=== PATIENT | female | born 1975 | race Caucasian/White ===

== ENCOUNTER 2016-12-05 21:08 | Emergency (ER) | payer OTHER ==
[2016-12-05 21:09] VITALS: BMI 36.7
--- NOTE | 2016-12-05 22:03 | C.PDOC ---
History Of Present Illness 41 year old female presents to the ED with complaints of lower abdominal pain for the past week. Patient states her LMP was on 10/30/16 and denies dysuria, hematuria, vaginal bleeding, vomiting, or any other complaints at this time. Chief Complaint (Nursing): Abdominal Pain History Per: Patient History/Exam Limitations: no limitations Onset/Duration Of Symptoms: Days Current Symptoms Are (Timing): Still Present Severity: Mild Radiation Of Pain To:: None Quality Of Discomfort: "Pain" Associated Symptoms: denies: Fever, Chills, Nausea, Vomiting, Urinary Symptoms Abnormal Vaginal Bleeding: No Past Medical History Reviewed: Historical Data, Nursing Documentation, Vital Signs Vital Signs: Last Vital Signs Temp 98.1 F 12/05/16 21:15 Pulse 83 12/05/16 21:15 Resp 16 12/05/16 21:15 BP 118/85 12/05/16 21:15 Pulse Ox 100 12/05/16 22:05 - Medical History PMH: Anemia, Anxiety, Asthma Surgical History: Cholecystectomy - [facility] Procedures COLONOSCOPY (06/26/13) INJECT/INFUSE ELECTROLYT (08/23/13) INJECT/INFUSE NEC (01/29/14) VENOUS PUNCTURE NEC (01/29/14) Family History: States: Unknown Family Hx - Social History Hx Tobacco Use: Yes Hx Alcohol Use: No Hx Substance Use: No - Immunization History Hx Tetanus Toxoid Vaccination: No Hx Influenza Vaccination: No Hx Pneumococcal Vaccination: No Review Of Systems Except As Marked, All Systems Reviewed And Found Negative. Constitutional: Negative for: Fever, Chills Gastrointestinal: Positive for: Abdominal Pain. Negative for: Nausea, Vomiting , Diarrhea Genitourinary: Negative for: Dysuria, Hematuria, Vaginal Bleeding Musculoskeletal: Negative for: Back Pain Physical Exam - Physical Exam Appears: Non-toxic, No Acute Distress Skin: Normal Color, Warm, Dry Head: Atraumatic, Normacephalic Eye(s): bilateral: Normal Inspection Oral Mucosa: Moist Chest: Symmetrical Cardiovascular: Rhythm Regular, No Murmur Respiratory: Normal Breath Sounds, No Accessory Muscle Use, No Rales, No Rhonchi , No Wheezing Gastrointestinal/Abdominal: Soft, Tenderness, No Distention, No Guarding, No Rebound (+Mild hypogastric tenderness) Extremity: Normal ROM, No Deformity Neurological/Psych: Oriented x3, Normal Speech, Normal Cognition ED Course And Treatment - Laboratory Results Result Diagrams: 12/05/16 22:26 12/05/16 22:26 O2 Sat by Pulse Oximetry: 100 (Room air) Pulse Ox Interpretation: Normal Progress Note: Pelvis US, Blood work, and Urinalysis ordered and reviewed. Disposition Counseled Patient/Family Regarding: Diagnosis - Disposition Referrals: [facility] at [facility] [Outside] Disposition: HOME/ ROUTINE Disposition Time: 23:18 Condition: STABLE Prescriptions: traMADol/Acetaminophen [Ultracet 325 MG-37.5 MG] 1 tab PO Q6 #14 tab Instructions: Uterine Fibroids (ED), Ovarian Cyst (ED) - POA Present On Arrival: None - Clinical Impression Clinical Impression: Uterine leiomyoma, Cyst of ovary - Scribe Statement The provider has reviewed the documentation as recorded by the Scribe shonna gaspar. Provider Attestation: All medical record entries made by the Scribe were at my direction and personally dictated by me. I have reviewed the chart and agree that the record accurately reflects my personal performance of the history, physical exam, medical decision making, and the department course for this patient. I have also personally directed, reviewed, and agree with the discharge instructions and disposition.
[2016-12-05 22:31] LABS: BASO # 0.1 K/uL (0.0-0.2); BASO % 0.9 % (0.0-2.0); EOS # 0.2 K/uL (0.0-0.7); HEMATOCRIT 37.6 % (34.0-47.0); LYMPH # 2.4 K/uL (1.0-4.3); MEAN CELL VOLUME 93.8 fL (81.0-99.0); MEAN CORPUSCULAR HEMOGLOBIN 31.1 pg (27.0-31.0); MEAN CORPUSCULAR HGB CONC 33.2 g/dL (33.0-37.0); MEAN PLATELET VOLUME 8.7 fL (7.2-11.7); MONO # 0.5 K/uL (0.0-0.8); MONO % 5.2 % (0.0-10.0); RED CELL DISTRIBUTION WIDTH 13.3 % (11.5-14.5); WHITE BLOOD COUNT 8.9 K/uL (4.8-10.8)
[2016-12-05 22:36] LABS: CHLORIDE 99 mmol/L (98-107); POTASSIUM 3.5 mmol/L (3.6-5.2); SODIUM 142 mmol/L (132-148)
[2016-12-05 22:38] LABS: AST/SGOT 22 U/L (14-36); BILIRUBIN,TOTAL 0.3 mg/dL (0.2-1.3); CARBON DIOXIDE 28 mmol/L (22-30); GFR AFRICAN-AMERICAN > 60; RBC URINE 3 /hpf (0-3); URINE BILIRUBIN NEGATIVE (NEGATIVE); URINE BLOOD NEGATIVE (NEGATIVE); URINE COLOR Yellow (YELLOW); URINE GLUCOSE (UA) NORMAL (Normal); URINE KETONE NEGATIVE (NEGATIVE); URINE LEUKOCYTE ESTERASE NEG Leu/uL (Negative); URINE PROTEIN NEGATIVE (NEGATIVE); URINE UROBILINOGEN NORMAL mg/dL (0.2-1.0)
[2016-12-05 22:39] LABS: ALB/GLOB RATIO 1.2 (1.0-2.1); ALKALINE PHOSPHATASE 70 U/L (38-126); ALT/SGPT 17 U/L (9-52); BLOOD UREA NITROGEN 13 mg/dL (7-17); CALCIUM 8.3 mg/dl (8.6-10.4); GLUCOSE,RANDOM 97 mg/dL (65-105)
--- NOTE | 2016-12-05 23:13 | US ---
EXAM: US Pelvis, Transvaginal. CLINICAL HISTORY: 41 years old, female; Pain; Pelvic pain; Additional info: Hypogastric pain/ tenderness TECHNIQUE: Real-time transvaginal pelvic ultrasound (complete) with image documentation. Transvaginal imaging was used for better evaluation of the endometrium and adnexa. EXAM DATE/TIME: 12/05/2016 9:58 PM COMPARISON: No relevant prior studies available. FINDINGS: There are 2 uterine fibroids identified. There is one located posteriorly measuring 1.4 x 1.3 x 1.6 cm. The other is located within the mid uterus and measures 1.4 x 0.9 x 1.2 cms. The endometrium measures 6 mm. There is a 2.3 x 1.7 cm right ovarian cyst. The left ovary is normal. Color flow and doppler vascular waveforms were demonstrated to both ovaries. There is no significant free fluid. IMPRESSION: Fibroid uterus. Small right ovarian cyst.
[2016-12-05 23:33] VITALS: BP 118/74; PULSE 77; RESP 18; TEMP 98.5; O2SAT 98
== END 2016-12-05 23:38 | disposition home or self-care (01) ==
LOC: C.ER 21:08
DX: D25.9 Leiomyoma of uterus, unspecified (principal); N83.201 Unspecified ovarian cyst, right side

== ENCOUNTER 2017-06-03 09:18 | Emergency (ER) | payer OTHER ==
[2017-06-03 09:18] VITALS: BMI 36.7
--- NOTE | 2017-06-03 09:40 | C.PDOC ---
History Of Present Illness 42 y/o female with Hx of Anxiety presents to ED with complaints of chest pain that started today. At ed patient is not anxious and reports earlier today she was dealing with her car and bent down but couldn't go back up and started developing sharp stabbing pain to chest radiating to back. Patient states pain make it difficult to breath or move and denies headache, fever, chills, sob, nausea, vomiting or any other complaints at this time. Time Seen by Provider: 06/03/17 09:29 Chief Complaint (Nursing): Chest Pain History Per: Patient History/Exam Limitations: no limitations Onset/Duration Of Symptoms: Days Current Symptoms Are (Timing): Still Present Quality: Sharp Past Medical History Reviewed: Historical Data, Nursing Documentation, Vital Signs Vital Signs: Last Vital Signs Temp 98.2 F 06/03/17 11:06 Pulse 62 06/03/17 11:06 Resp 12 06/03/17 11:06 BP 119/72 06/03/17 11:06 Pulse Ox 98 06/03/17 11:06 - Medical History PMH: Anemia, Anxiety, Asthma Surgical History: Cholecystectomy - [facility] Procedures COLONOSCOPY (06/26/13) INJECT/INFUSE ELECTROLYT (08/23/13) INJECT/INFUSE NEC (01/29/14) VENOUS PUNCTURE NEC (01/29/14) Family History: States: No Known Family Hx - Social History Hx Tobacco Use: Yes Hx Alcohol Use: No Hx Substance Use: No - Immunization History Hx Tetanus Toxoid Vaccination: No Hx Influenza Vaccination: No Hx Pneumococcal Vaccination: No Review Of Systems Except As Marked, All Systems Reviewed And Found Negative. Constitutional: Negative for: Fever, Chills Cardiovascular: Positive for: Chest Pain. Negative for: Palpitations Respiratory: Negative for: Cough, Shortness of Breath Gastrointestinal: Negative for: Nausea, Vomiting Skin: Negative for: Rash Physical Exam - Physical Exam Appears: Non-toxic, No Acute Distress Skin: Normal Color, Warm, Dry, No Rash Head: Atraumatic, Normacephalic Eye(s): bilateral: Normal Inspection Oral Mucosa: Moist Neck: Normal ROM, Supple Chest: Other (reproducible pain to anterior right chest wall) Cardiovascular: Rhythm Regular, No Murmur Respiratory: Normal Breath Sounds, No Rales, No Rhonchi, No Wheezing Gastrointestinal/Abdominal: Soft, No Tenderness, No Guarding, No Rebound Neurological/Psych: Oriented x3 ED Course And Treatment ECG: Interpreted By Me, Viewed By Me ECG Rhythm: Sinus Rhythm ECG Interpretation: No Acute Changes (+) Rate From EC (bpm) O2 Sat by Pulse Oximetry: 100 (RA) Pulse Ox Interpretation: Normal Medical Decision Making Medical Decision Making: Plan: * Pain Medication * Discharge home Disposition Counseled Patient/Family Regarding: Diagnosis, Need For Followup, Rx Given - Disposition Disposition: HOME/ ROUTINE Disposition Time: 10:53 Condition: STABLE Additional Instructions: Take the Motrin and Valium 3 times a day, if you are home resting. Otherwise just take the Motrin and take the Motrin and Valium at night Prescriptions: diaZEpam [Valium] 5 mg PO TID #15 tab Ibuprofen [Motrin] 600 mg PO TID #15 tab Instructions: Costochondritis (ED) Forms: [facility] (Colombian), General Discharge Instructions - POA Present On Arrival: None - Clinical Impression Clinical Impression: Costochondritis, acute - Scribe Statement The provider has reviewed the documentation as recorded by the Nakul Robb All medical record entries made by the Nakul were at my direction and personally dictated by me. I have reviewed the chart and agree that the record accurately reflects my personal performance of the history, physical exam, medical decision making, and the department course for this patient. I have also personally directed, reviewed, and agree with the discharge instructions and disposition.
[2017-06-03 11:07] VITALS: BP 119/72; PULSE 62; RESP 12; TEMP 98.2
[2017-06-03 11:25] VITALS: O2SAT 100
--- NOTE | 2017-06-04 14:52 | CARD ---
APPROVED REPORT EKG Measurement Heart [id number] <Conclusion> Normal sinus rhythm Normal ECG
== END 2017-06-03 11:06 | disposition home or self-care (01) ==
LOC: C.ER 09:18
DX: M94.0 Chondrocostal junction syndrome [Tietze] (principal)

== ENCOUNTER 2017-09-06 08:07 | Day surgery (SDC) | payer OTHER ==
[2017-09-06 08:25] VITALS: BMI 37.3
[2017-09-06 09:11] VITALS: TEMP 97.8
[2017-09-06] MEDS ORDERED: Lactated Ringer's 500 ML IV ONE (11:01)
[2017-09-06] MEDS ORDERED: Midazolam 2 MG/2 ML VIAL ONE (11:02)
[2017-09-06] MEDS ORDERED: Propofol 10 mg/ml Inj (20 ML) ONE (11:02)
[2017-09-06] MEDS ORDERED: Albuterol HFA 90 mcg/actuation (8 g) ONE (11:26)
[2017-09-06 13:40] VITALS: O2SAT 100
[2017-09-06 13:41] VITALS: BP 116/70
[2017-09-06 13:51] VITALS: PULSE 85; RESP 20
== END 2017-09-06 13:00 | disposition home or self-care (01) ==
LOC: C.ENDO 08:07
PROVIDERS: ATTEND Internal Medicine
DX: R10.11 Right upper quadrant pain (principal); K29.70 Gastritis, unspecified, without bleeding; K29.80 Duodenitis without bleeding
CPT/HCPCS: 43239; 84703; 88305; J2001; J2250; J2704; J7120

== ENCOUNTER 2017-11-26 12:50 | Emergency (ER) | payer OTHER ==
[2017-11-26 12:50] VITALS: BMI 37.3
[2017-11-26 12:55] VITALS: BP 126/81; PULSE 83; RESP 18; TEMP 97.8; O2SAT 100
== END 2017-11-26 12:52 | disposition left against medical advice (07) ==
LOC: C.ER 12:50
DX: Z02.89 Encounter for other administrative examinations (principal); R10.9 Unspecified abdominal pain

== ENCOUNTER 2018-10-03 07:52 | Emergency (ER) | payer OTHER ==
[2018-10-03 08:01] VITALS: BMI 36.3
--- NOTE | 2018-10-03 09:06 | C.PDOC ---
History Of Present Illness Patient is a 43 year old female, with a PMHx of panic attacks, who presents to the ED for evaluation of right shoulder pain that began this morning after she woke up and states that is hurts to lift her shoulder. Patient also reports that she has had intermittent CP for 2 weeks that happens with feelings of anxiousness that she has been experiencing with the stress of losing her grandparents. Patient states that when the pain occurs it feels like pressure, lasts for two hours, is coupled with SOB and then suddenly leaves. Patient denies any recent trauma, weakness or numbness in her right shoulder, current CP or SOB, fever, chills, or any other medical complaints at the moment. Time Seen by Provider: 10/03/18 08:04 Chief Complaint (Nursing): Upper Extremity Problem/Injury History/Exam Limitations: no limitations Onset/Duration Of Symptoms: Hrs (morning ) Quality: "Pain" (right shoulder ) Recent travel outside of the [place]: No Additional History Per: Patient Past Medical History Reviewed: Historical Data, Nursing Documentation, Vital Signs Vital Signs: Last Vital Signs Temp 98.2 F 10/03/18 07:58 Pulse 70 10/03/18 07:58 Resp 20 10/03/18 07:58 BP 125/88 10/03/18 07:58 Pulse Ox 98 10/03/18 07:58 - Medical History PMH: Anemia, Anxiety, Asthma, Gall Bladder Disease Denies: Chronic Kidney Disease Surgical History: Cholecystectomy - [facility] Procedures COLONOSCOPY (06/26/13) INJECT/INFUSE ELECTROLYT (08/23/13) INJECT/INFUSE NEC (01/29/14) VENOUS PUNCTURE NEC (01/29/14) Family History: States: Unknown Family Hx - Social History Hx Tobacco Use: Yes Hx Alcohol Use: No Hx Substance Use: No - Immunization History Hx Tetanus Toxoid Vaccination: No Hx Influenza Vaccination: No Hx Pneumococcal Vaccination: No Review Of Systems Constitutional: Negative for: Fever, Chills Cardiovascular: Negative for: Chest Pain Respiratory: Negative for: Shortness of Breath Musculoskeletal: Positive for: Shoulder Pain (right shoulder ) Neurological: Negative for: Weakness (right shoulder ), Numbness (right shoulder ) Psych: Positive for: Anxiety Physical Exam - Physical Exam Appears: Non-toxic, No Acute Distress Skin: Normal Color, Warm, Dry Head: Atraumatic, Normacephalic Oral Mucosa: Moist Neck: Normal ROM, Supple Chest: Symmetrical, No Deformity Cardiovascular: Rhythm Regular, No Murmur Respiratory: Normal Breath Sounds, No Rales, No Rhonchi, No Wheezing Gastrointestinal/Abdominal: Soft, No Tenderness, No Guarding, No Rebound Extremity: No Normal ROM (able to abduct rt shoulder 90 degrees. Pain when abducting past that.), Tenderness (lateral and anterior right shoulder ) Pulses: Left Radial: Normal, Right Radial: Normal Neurological/Psych: Oriented x3, Normal Speech, Normal Cognition, Normal Motor, Normal Sensation ED Course And Treatment ECG: Interpreted By Me, Viewed By Me ECG Rhythm: Sinus Rhythm Interpretation Of ECG: Normal axis, normal intervals, no ST elevation Rate From EC O2 Sat by Pulse Oximetry: 98 (on RA) Pulse Ox Interpretation: Normal - Other Rad CXR X-Ray: Viewed By Me, Read By Radiologist Interpretation: FINDINGS: LUNGS: No acute infiltrates bilaterally. Limited fibrosis seen lateral to the left heart border at the inferior left lung zone. PLEURA: No significant pleural effusion identified, no pneumothorax apparent. CARDIOVASCULAR: No aortic atherosclerotic calcification present. Normal cardiac size. No pulmonary vascular congestion. OSSEOUS STRUCTURES: No significant abnormalities. VISUALIZED UPPER ABDOMEN: Normal. OTHER FINDINGS: None. IMPRESSION: No interval acute cardiopulmonary disease appreciated. Minimal fibrosis noted inferior left lung zone laterally. Xray RT Shoulder X-Ray: Viewed By Me, Read By Radiologist Interpretation: FINDINGS: BONES: No acute fracture or destructive bony lesion identified. JOINTS: Glenohumeral and acromioclavicular joints preserved. No osteoarthritis. SOFT TISSUES: Normal. OTHER FINDINGS: None. IMPRESSION: Normal radiographs of the right shoulder. Medical Decision Making Medical Decision Making: Xray Chest and Xray Rt Shoulder ordered and reviewed. No acute disease in chest xray. No acute fracture or dislocation noted in rt shoulder xray. Flexeril 10mg PO and Motrin 600mg PO administered. Patient with no comorbidities (hypertension, DM, hypercholesterolemia). She is a 1/2PPD smoker. She denies exertional chest pain. Unlikely to be cardiac pain. On re-eval, patient sleeping comfortably. When awake, she states that she feels better. XR and EKG results discussed with patient. Still no chest pain. Rx written for flexeril. Patient advised to also to NSAIDs at home for shoulder pain. Advised outpatient followup as needed. Return to the ED for any new or worsening symptoms. Disposition - Disposition Disposition: HOME/ ROUTINE Disposition Time: 10:48 Condition: STABLE Additional Instructions: ANKITA WHITTEN, thank you for letting us take care of you today. Your provider was Kamryn Sifuentes MD and you were treated for ARM PAIN. The emergency medical care you received today was directed at your acute symptoms. If you were prescribed any medication, please fill it and take as directed. It may take several days for your symptoms to resolve. Return to the Emergency Department if your symptoms worsen, do not improve, or if you have any other problems. Please contact your doctor or call one of the physicians/clinics you have been referred to that are listed on the Patient Visit Information form that is included in your discharge packet. Bring any paperwork you were given at discharge with you along with any medications you are taking to your follow up visit. Our treatment cannot replace ongoing medical care by a primary care provider outside of the emergency department. Thank you for allowing the [facility] team to be part of your care today. If you had an X-Ray or CT scan: A Radiologist will review the ED reading if any change in treatment is needed we will contact you. If you had a blood, urine, or wound culture: It will take several days for the results, if any change in treatment is needed we will contact you. If you had an STI test: It will take 48 hours for the results. Please call after 1 week if you have not heard back. Prescriptions: Cyclobenzaprine [Flexeril] 5 mg PO Q8H PRN #10 tab PRN Reason: Muscle Spasm Instructions: Anxiety, Adult (DC), Shoulder Pain (DC) Forms: [email or web address] (Italian) - Clinical Impression Clinical Impression: Right shoulder pain, Chest pain - Scribe Statement The provider has reviewed the documentation as recorded by the Nakul Obrien
--- NOTE | 2018-10-03 10:50 | RAD ---
Date of service: 10/03/2018 PROCEDURE: Radiographs of the Right Shoulder HISTORY: pain, no injury COMPARISON: No prior. FINDINGS: BONES: No acute fracture or destructive bony lesion identified. JOINTS: Glenohumeral and acromioclavicular joints preserved. No osteoarthritis. SOFT TISSUES: Normal. OTHER FINDINGS: None. IMPRESSION: Normal radiographs of the right shoulder.
--- NOTE | 2018-10-03 10:51 | RAD ---
Date of service: 10/03/2018 HISTORY: chest pain COMPARISON: Chest radiographs 07/26/2017. FINDINGS: LUNGS: No acute infiltrates bilaterally. Limited fibrosis seen lateral to the left heart border at the inferior left lung zone. PLEURA: No significant pleural effusion identified, no pneumothorax apparent. CARDIOVASCULAR: No aortic atherosclerotic calcification present. Normal cardiac size. No pulmonary vascular congestion. OSSEOUS STRUCTURES: No significant abnormalities. VISUALIZED UPPER ABDOMEN: Normal. OTHER FINDINGS: None. IMPRESSION: No interval acute cardiopulmonary disease appreciated. Minimal fibrosis noted inferior left lung zone laterally.
[2018-10-03 11:10] VITALS: BP 131/84; PULSE 79; RESP 18; TEMP 98.3
[2018-10-03 12:30] VITALS: O2SAT 98
== END 2018-10-03 11:17 | disposition home or self-care (01) ==
LOC: C.ER 07:52
DX: M25.511 Pain in right shoulder (principal); R07.9 Chest pain, unspecified

== ENCOUNTER 2018-10-17 13:32 | Emergency (ER) | payer OTHER ==
[2018-10-17 13:32] VITALS: BMI 37.3
[2018-10-17 13:41] VITALS: BP 124/84; PULSE 75; RESP 20; TEMP 98.2; O2SAT 100
--- NOTE | 2018-10-17 13:57 | C.PDOC ---
History Of Present Illness Ms. Tobias is a 43 year old female with a PMHx of Anxiety, asthma, and anemia who presents with complaints of right shoulder pain with inferomedial radiation to right parasternal region x 3 weeks. Patient has been seen in [facility] for the pain on 10/03 and had negative radiographs of the right shoulder, an EKG that was NSR, and CXR that showed no acute pulmonary disease. She describes the pain as sharp, rates it a 7/10 and has been controlling the pain with flexeril and ibuprofen. Pain is exacerbated with overhead movements. She denies any positional relief. She also complains of numbness/tingling in her right distal upper extremity. Her pain in the chest is worsened with deep inspiration. She denies any recent long travel. ROS: POSITIVES: Shoulder pain, chest pain, numbness/tingling in right hand NEGATIVES: Fever, chills, headache, SOB, palpitations, abdominal pain, n/v, changes in bowel habits, urinary symptoms. PMHx: Anxiety, Asthma, Anemia PSHx: Cholecystectomy, Fibroid Cyst Removal Allergies: Bactrim, Compazine, Toradol, Tramadol. Unsure of specific reaction per drug. SocialHx: 1/2 PPD for 20 years, Social EtoH Use, Denies illicit drug use FamHx: Breast CA - Paternal Grandmother Meds: Unspecified Asthma Pump, Ativan PMD: Dr. Karen Lea <Curt Kelly - Last Filed: 10/17/18 15:14> <Celeste Hendrix - Last Filed: 10/17/18 14:45> History Per: Patient <Curt Kelly - Last Filed: 10/17/18 15:14> Time Seen by Provider: 10/17/18 13:50 Chief Complaint (Nursing): Upper Extremity Problem/Injury Past Medical History Vital Signs: Last Vital Signs Temp 98.2 F 10/17/18 13:36 Pulse 75 10/17/18 13:36 Resp 20 10/17/18 13:36 BP 124/84 10/17/18 13:36 Pulse Ox 100 10/17/18 14:34 - [facility] Procedures COLONOSCOPY (06/26/13) INJECT/INFUSE ELECTROLYT (08/23/13) INJECT/INFUSE NEC (05/16/14) VENOUS PUNCTURE NEC (01/29/14) <Celeste Hendrix - Last Filed: 10/17/18 14:45> Vital Signs: Last Vital Signs Temp 98.2 F 10/17/18 13:36 Pulse 75 10/17/18 13:36 Resp 20 10/17/18 13:36 BP 124/84 10/17/18 13:36 Pulse Ox 100 10/17/18 13:36 - Medical History PMH: Anemia, Anxiety, Asthma, Gall Bladder Disease Denies: Chronic Kidney Disease Surgical History: Cholecystectomy - [facility] Procedures COLONOSCOPY (06/26/13) INJECT/INFUSE ELECTROLYT (08/23/13) INJECT/INFUSE NEC (01/29/14) VENOUS PUNCTURE NEC (01/29/14) Family History: States: Unknown Family Hx - Social History Hx Tobacco Use: Yes Hx Alcohol Use: No Hx Substance Use: No - Immunization History Hx Tetanus Toxoid Vaccination: No Hx Influenza Vaccination: No Hx Pneumococcal Vaccination: No <Curt Kelly - Last Filed: 10/17/18 15:14> Review Of Systems Except As Marked, All Systems Reviewed And Found Negative. (As per HPI) <Curt Kelly - Last Filed: 10/17/18 15:14> Physical Exam - Physical Exam Appears: Well, Non-toxic, No Acute Distress Skin: Normal Color, Warm, Dry Head: Atraumatic, Normacephalic Eye(s): bilateral: EOMI Oral Mucosa: Moist Tongue: Normal Appearing Lips: Normal Appearing Teeth: Normal Dentition Gingiva: Normal Appearing Throat: Normal Neck: Decreased ROM (Decreased in Right Sidebending and rotation. ), Paracervical Tenderness (Right Sided w/ Hypertonicity (C3-C7)) Cardiovascular: Rhythm Regular, No Edema, No Friction Rub, No Murmur, No JVD Respiratory: Normal Breath Sounds, No Accessory Muscle Use, No Rales, No Rhonchi, No Wheezing Gastrointestinal/Abdominal: Normal Exam, Bowel Sounds, Soft, No Tenderness Extremity: No Pedal Edema, Capillary Refill (Normal) Neurological/Psych: Oriented x3, Normal Speech, Normal Cognition, Normal Motor, No Normal Sensation (Decreased Sensation in right upper ext. digitts ), Other (Positive Spurlings Test (Right)) Gait: Steady Additional Physical Exam Comments: Right Shoulder Exam: Pain against resistant in External Rotation and Flexion Subacromial tenderness, Right parasternal tenderness, Tenderness on Coracoid Process -Leblanc Test, +Speeds Test, +O'briens Test, -Yergasons, Cross Arm Test (Poor Effort) Restricted ROM in IR, ER, Flex, Ext. <Curt Kelly - Last Filed: 10/17/18 15:14> ED Course And Treatment O2 Sat by Pulse Oximetry: 100 <Curt Kelly - Last Filed: 10/17/18 15:14> Supervising Attending Note - Supervising Attending Note Comment: RESIDENT - Attestation: I have personally seen and examined this patient.: Yes I have fully participated in the care of the patient.: Yes I have reviewed all pertinent clinical information, including history, physical exam and plan: Yes - Notes: Notes:: R SHOULDER PAIN X 3 WEEKS. OCC RADIATION TO MIDSTERNUM, SHARP WORSE W POSITION. RESOLVES W FLEXERIL AND NSAID. SP R SHOULDER XRAY 10/03 NEG. PT ADVISED TO REFER PMD PREVIOUSLY BUT NEVER DID. RAN OUT OF FLEXERIL. CURRENT PAIN SIM TO PRIOR. EXAM +R PARASTERNAL CHEST WALL TEND W REPROD PAIN; R SHOULD DEC ROM EXT ROT AND FLEXION W REPRODUC PAIN. FINDINGS ABOVE. <Celeste Hendrix - Last Filed: 10/17/18 14:45> Medical Decision Making Medical Decision Making: Right Shoulder Pain Discharge with Flexeril. Patient may take OTC Ibuprofen for her pain Patient agrees to find a new PCP and follow up with them Patient explained that X-rays may not show what is causing her pain but MRI may based on her symptoms Patient told she may benefit from Physical Therapy. <Curt Kelly - Last Filed: 10/17/18 15:14> Disposition Counseled Patient/Family Regarding: Diagnosis, Need For Followup, Rx Given - Disposition Disposition Time: 14:45 <Celeste Hendrix - Last Filed: 10/17/18 14:45> <Curt Kelly - Last Filed: 10/17/18 15:14> - Disposition Referrals: [facility] [Outside] [facility] [Outside] Disposition: HOME/ ROUTINE Condition: GOOD Prescriptions: Cyclobenzaprine [Flexeril] 10 mg PO TID #15 tab Instructions: Radiculopathy (DC), Rotator Cuff Injury (DC), Shoulder Tendinopathy (DC), Generalized Neck Pain (DC) Forms: [employer] (Latvian) - Clinical Impression Clinical Impression: Shoulder pain, acute, Cervical pain (neck)
== END 2018-10-17 15:02 | disposition home or self-care (01) ==
LOC: C.ER 13:32
DX: M25.511 Pain in right shoulder (principal); M54.2 Cervicalgia